=== PATIENT | female | born 1955 | race Hispanic/Latino ===

== ENCOUNTER 2020-08-21 05:52 | Day surgery (SDC) | payer OTHER ==
[2020-08-17 12:28] LABS: EOSINOPHILS % (AUTO) 1.4 % (0.0-8.0); HEMATOCRIT 39.1 % (36-48); LYMPHOCYTES % (AUTO) 33.4 % (21.0-51.0); MEAN CORPUSCULAR HEMOGLOBIN 29.7 pg (27.0-33.0); MEAN CORPUSCULAR HGB CONC 31.7 g/dL (32.0-36.0); MEAN CORPUSCULAR VOLUME 93.5 fL (79-99); PLATELET COUNT (AUTO) 201 K/uL (130-400); RED BLOOD CELL COUNT(AUTO) 4.18 MIL/uL (4.00-5.50); RED CELL DISTRIBUTION WIDTH 13.1 % (11.0-15.5); WHITE BLOOD COUNT (AUTO) 5.9 K/uL (4.8-10.8)
[2020-08-17 12:43] LABS: CREATININE 0.6 mg/dL (0.5-1.5); INR 1.06 (0.85-1.15); POTASSIUM 3.9 mmol/L (3.5-5.1); PROTHROMBIN TIME 11.3 SEC (9.6-11.6)
[2020-08-17 12:44] LABS: PARTIAL THROMBOPLASTIN TIME 29.8 SEC (26.3-35.5)
[2020-08-20 09:23] VITALS: BP 155/61
[~2020-08-21] VITALS: Ht 152.4 cm; Wt 72.4 kg
[2020-08-21] VITALS (10 sets, daily range): BP systolic 98–143; BP diastolic 41–70
[~2020-08-21 05:52] MED LIST: VITAMIN C PO; VITAMIN D PO
[2020-08-21] MEDS ORDERED: 0.9%NACL 1000ML 1,000 ML IV ONE (06:49)
[2020-08-21] MEDS ORDERED: MIDAZOLAM HCL 1 MG/ML 2ML VIAL ONE ×2 (07:22→08:23)
[2020-08-21] MEDS ORDERED: LIDOCAINE HCL 1% MDV 50ML VIAL ONE (07:22)
[2020-08-21] MEDS ORDERED: MEPERIDINE-PF 25 MG/ML SYG ONE ×2 (07:22→08:23)
[2020-08-21] MEDS ORDERED: BUPIVACAINE/PF 0.25% 30ML VIAL IJ ONE (07:22)
[2020-08-21] MEDS ORDERED: CEFAZOLIN SODIUM 1 GM VIAL ONE (07:22)
[2020-08-21] MEDS ORDERED: PEG15DRO4 OP (07:55)
[2020-08-21] MEDS ORDERED: MONT-39 PO (07:55)
[2020-08-21] MEDS ORDERED: FLUT15.845 NS (07:55)
[2020-08-21] MEDS ORDERED: ACETAMINOPHEN WITH CODEINE 1 TAB TAB PO PRN (09:00)
[2020-08-21] MEDS ORDERED: TRAM50TA4 PO (09:01)
== END 2020-08-21 12:30 | disposition home or self-care (01) ==
LOC: DAH 05:52
PROVIDERS: ATTEND Internal Medicine Cardiovascular Disease
DX: I49.5 Sick sinus syndrome (principal); Z95.0 Presence of cardiac pacemaker; Z79.01 Long term (current) use of anticoagulants; Z79.899 Other long term (current) drug therapy
CPT/HCPCS: 33228; 36415; 80048; 85025; 85610; 85730; A4215; A4216; A4221; A4222; A4223 ×3; A4606; A4663; A6402; C1785; J0690; J2175 ×2; J2250 ×2; J3490 ×2; J7030; 99156; 99157